=== PATIENT | male | born 1950 | race African-American/Black ===

== ENCOUNTER → 2019-03-29 | Day surgery (SDC) | payer MEDICARE, BC ==
[~2019-03-29] MED LIST: ASPIR 8181 MG PO; AZOR 10-40 MG1 EACH PO; BYSTOLIC10 MG PO; CLOPIDOGREL75 MG PO; FENTANYL CITRATE/PF 100MCG/2 ML INJ ONE; HUMALOG100 UNIT/3 SQ; LANTUS 3ML100 UNITS/ SQ; METFORMIN HCL1000 MG PO; MIDAZOLAM HCL 2 MG/2 ML VIAL ONE; OR PHACO EYE KIT ONE; PREOP PHACO EYE KIT ONE; TRIAMTERENE-HC1 EAC1 PO
--- OUTSIDE RECORDS SUMMARY | 2019-03-29 12:01 | XMS REPORT | Clinical Summary ---
Author Author [facility] Address Unknown Phone Unavailable Care Team Providers Care Pig Caster Name Role Phone Lester Rubalcava MD PCP Allergies Comments Active Allergy Reactions Severity Noted Date Tizafmc-Lmd-Irq Reductase 08/14/2016 Inhibitors Medications End Date Status Medication Sig Dispensed Refills Start Date Active UNABLE TO FIND Take 1 tablet 0 by mouth every morning. Amlodipine-ol mes-medoxom- 10/40mg Active metoprolol tartrate Take 50 mg by 0 (LOPRESSOR) 50 mg tablet mouth 2 (two) times a day. Active ezetimibe (ZETIA) 10 mg Take 10 mg by 0 tablet mouth nightly. Active atorvastatin (LIPITOR) 20 Take 20 mg by 0 MG tablet mouth nightly. Active aspirin (ECOTRIN) 81 MG Take 81 mg by 0 enteric coated tablet mouth daily. 03/31/2019 Active HYDROcodone-acetaminophen Earliest Fill 60 tablet 0 (XODOL 10-300) 10-300 mg Date: 9 per tablet 03/17/19. 1-2 tabs by mouth every 4-6 hours as needed for pain 03/22/2019 methylPREDNISolone Take 1 tablet 21 tablet 0 (MEDROL DOSEPAK) 4 mg (4 mg total) 9 tablet by mouth See Admin Instructions for 5 days. Use as directed by package instructions 03/22/2019 methylPREDNISolone Take 1 tablet 21 tablet 0 201 (MEDROL DOSEPAK) 4 mg (4 mg total) 9 tablet by mouth See Admin Instructions for 5 days. Use as directed by package instructions Active Problems Problem Noted Date Presence of artificial knee joint 12/18/2016 OA (osteoarthritis) of knee 10/28/2016 Primary osteoarthritis of both knees 08/14/2016 Encounters Care Team Description Date Type Specialty Ventura Crocker MD Primary osteoarthritis of both knees (Primary Dx); Acute pain of right knee; History of total left knee replacement; Acute bilateral low back pain, with sciatica presence unspecified; Acute right-sided low back pain with right-sided sciatica 03/17/2019 Office Visit Orthopedic Surgery Елена So Acute pain of right knee (Primary Dx) 03/17/2019 Orders Only Orthopedic Surgery after 03/28/2018 Immunizations Name Dates Previously Given Next Due Pneumococcal Conjugate 10/30/2016 13-Valent Family History Medical History Relation Name Comments Brain cancer Brother Cancer Brother Cancer Father Diabetes Father Lung cancer Father Alzheimer's disease Mother Cancer Sister Colon cancer Sister Relation Name Status Comments Brother Father Mother Alive Sister Social History Date Tobacco Use Types Packs/Day Years Used Current Some Day Smoker Cigars Comments: occasional Alcohol Use Drinks/Week oz/Week Comments Yes occasional Sex Assigned at Date Recorded Not on file Industry Job Start Date Occupation Not on file Not on file Not on file Travel End Travel History Travel Start No recent travel history available. Last Filed Vital Signs Not on file Plan of Treatment Health Maintenance Due Date Last Done Comments COLONOSCOPY SCREENING 2001 SHINGLES VACCINES (#1) 2001 65+ PNEUMOCOCCAL VACCINE 10/30/2017 10/30/2016 (2 of 2 - PPSV23) INFLUENZA VACCINE 04/28/2019 Implants Device Identifier Shelf Expiration Date Model / Serial / Lot Implanted Type Area Manufactur er 05/01/2021 [id number] / / [id number] E-Poly Vanguard Cr Tib Brng 79/83 X IPM Left: Knee BIOMET, 10 - [id number] [employer]PL[employer] Implanted: Qty: 1 on 10/28/2016 by Ventura Gutierrez MD 11/08/2025 [id number] / / [id number] Vanguard Cr Por Fem-Lt 75 - IPM Left: Knee BIOMET, [id number] [employer]PL[employer] Implanted: Qty: 1 on 10/28/2016 by Ventura Gutierrez MD 06/09/2026 [id number] / / [id number] Biomet Regenx Bernie Tib Tray 79mm - IPM Left: Knee BIOMET, [id number] [employer]PL[employer] Implanted: Qty: 1 on 10/28/2016 by Ventura Gutierrez MD 05/28/2020 [id number] / / [id number] Cement Bone R+G 1dose Palacos - Knee Joint Left: Knee [employer] [id number] Implants Implanted: Qty: 1 on 10/28/2016 by Ventura Crockre MD 10/13/2026 [id number] / / [id number] Stem Tib Prim Finned 40mm Ascent Knee Joint Left: Knee [employer] Maxim - [id number] Implants Implanted: Qty: 1 on 10/28/2016 by Ventura Crocker MD 06/15/2021 [id number] / / [id number] Implant Ptlr Vanguard 3 Peg Series Orthopedic Left: Knee [employer] A Thin 31x6.2mm - [id number] Trauma Implanted: Qty: 1 on 10/28/2016 by Implants Ventura Crocker MD Procedures Comments Procedure Name Priority Date/Time Associated Diagnosis MRI LUMBAR SPINE WO Routine 03/22/2019 Acute bilateral low back CONTRAST 4:40 PM CDT pain, with sciatica presence unspecified XR KNEE 4+ VW RIGHT Routine 03/17/2019 Acute pain of right knee 11:48 AM CDT XR PELVIS 1 OR 2 VW Routine 03/17/2019 Acute pain of right knee 11:42 AM CDT after 03/28/2018 Results * MRI Lumbar Spine Wo Contrast (03/22/2019 4:40 PM CDT) Specimen Narrative Performed At [facility] EXAMINATION:MRI LUMBAR SPINE WO CONTRAST CLINICAL HISTORY:M54.5 Low back pain, [id number] red flagsno prior management COMPARISON:None. TECHNIQUE: Multiplanar MRI imaging withoutIV Gadolinium was performed. FINDINGS: There is normal lumbar lordosis and alignment. Vertebral bodies are preserved. Bone marrow is unremarkable with no evidence of acute fracture or suspicious marrow-replacing lesion. Intervertebral disc spaces are relatively preserved. The distal spinal cord appears unremarkable. The conus medullaris terminates at the T12 level and appears unremarkable. The cauda equina is unremarkable. L1-2: Unremarkable L2-3: Unremarkable L3-4: Mild disc bulge with bilateral facet arthropathy. There is no canal stenosis or foraminal narrowing. L4-5: Mild disc bulge with central disc protrusion bilateral facet arthropathy. There is minimal canal stenosis with mild to moderate bilateral lateral recess narrowing. There is no significant foraminal narrowing. L5-S1: There is diffuse disc bulge with superimposed right central and subarticular disc protrusion resulting in significant right lateral recess narrowing and potential compromise of the traversing right S1 nerve root. There is no canal stenosis. There is no foraminal narrowing. Visualized paraspinal soft tissues are unremarkable. IMPRESSION: Right central and subarticular disc protrusion at L5-S1 level with right lateral recess narrowing and potential compromise of the right S1 nerve root. Clinical correlation is recommended. [id number] Procedure Note Hm Interface, Radiology Results - 03/22/2019 6:20 PM CDT EXAMINATION: MRI LUMBAR SPINE WO CONTRAST CLINICAL HISTORY: M54.5 Low back pain, Radiculopathy 6wks no red flags no prior management COMPARISON: None. TECHNIQUE: Multiplanar MRI imaging without IV Gadolinium was performed. FINDINGS: There is normal lumbar lordosis and alignment. Vertebral bodies are preserved. Bone marrow is unremarkable with no evidence of acute fracture or suspicious marrow-replacing lesion. Intervertebral disc spaces are relatively preserved. The distal spinal cord appears unremarkable. The conus medullaris terminates at the T12 level and appears unremarkable. The cauda equina is unremarkable. L1-2: Unremarkable L2-3: Unremarkable L3-4: Mild disc bulge with bilateral facet arthropathy. There is no canal stenosis or foraminal narrowing. L4-5: Mild disc bulge with central disc protrusion bilateral facet arthropathy. There is minimal canal stenosis with mild to moderate bilateral lateral recess narrowing. There is no significant foraminal narrowing. L5-S1: There is diffuse disc bulge with superimposed right central and subarticular disc protrusion resulting in significant right lateral recess narrowing and potential compromise of the traversing right S1 nerve root. There is no canal stenosis. There is no foraminal narrowing. Visualized paraspinal soft tissues are unremarkable. IMPRESSION: Right central and subarticular disc protrusion at L5-S1 level with right lateral recess narrowing and potential compromise of the right S1 nerve root. Clinical correlation is recommended. [id number] Performing Organization Address City/State/Zipcode Phone Number [facility] [address] [place] [address] * XR Knee 4+ Vw Right (03/17/2019 11:48 AM CDT) Specimen Narrative Performed At [facility] Well fixed and aligned TKR Left OA [id number]% loss of joint space, periarticular spurring, cysts, and subchondral sclerosisright knee medial Performing Organization Address City/[facility] Phone Number [facility] [address] [place] [address] * XR Pelvis 1 Or 2 Vw (03/17/2019 11:42 AM CDT) Specimen Narrative Performed At [facility] underpenetrated xray with No milena or soft tissue abnormality visible Performing Organization Address [facility] Phone Number [facility] [address] [place] [address] after 03/28/2018 Insurance Type Payer Benefit Subscriber ID Effective Phone Address Plan / Dates Group Medicare MEDICARE MEDICARE xxxxxxxxxxx 2016-P [employer], PART A AND resent [place] B PPO BCBS BCBS xxxxxxxxxxxx 2017-P CHOICE resent PPO/LEXI [place] PPO Advance Directives Patient has advance care planning documents on file. For more information, adriano miller contact: Dave Velez [address] [place] [address]
[2019-03-29 15:35] VITALS: BP 148/68
== END | disposition home or self-care (01) ==
LOC: OR 11:59
PROVIDERS: ATTEND Ophthalmology
DX: H25.12 Age-related nuclear cataract, left eye (principal); I10 Essential (primary) hypertension; E66.01 Morbid (severe) obesity due to excess calories; E78.2 Mixed hyperlipidemia; M54.18 Radiculopathy, sacral and sacrococcygeal region; M17.0 Bilateral primary osteoarthritis of knee; E11.9 Type 2 diabetes mellitus without complications; G47.33 Obstructive sleep apnea (adult) (pediatric); Z88.8 Allergy status to other drugs, medicaments and biological substances; Z79.82 Long term (current) use of aspirin; Z68.41 Body mass index [BMI] 40.0-44.9, adult; Z85.46 Personal history of malignant neoplasm of prostate; Z96.652 Presence of left artificial knee joint; Z87.891 Personal history of nicotine dependence
CPT/HCPCS: 66984; J2250; V2632; J3010

== ENCOUNTER → 2019-04-12 | Day surgery (SDC) | payer MEDICARE, BC ==
--- OUTSIDE RECORDS SUMMARY | 2019-04-12 11:17 | XMS REPORT | Clinical Summary ---
Author Author [facility] Address Unknown Phone Unavailable Care Team Providers Care Survival Specialist Name Role Phone Lester Rubalcava MD PCP Allergies Comments Active Allergy Reactions Severity Noted Date Zqcuxpc-Ujf-Zvf Reductase 08/14/2016 Inhibitors Medications End Date Status [...] by 0 enteric coated tablet mouth daily. 03/22/2019 methylPREDNISolone Take 1 tablet 21 tablet 0 (MEDROL DOSEPAK) 4 mg (4 mg total) 9 tablet by mouth See Admin Instructions for 5 days. Use as directed by package instructions 03/31/2019 HYDROcodone-acetaminophen Earliest Fill 60 tablet 0 (XODOL [...] Dx) 03/17/2019 Orders Only Orthopedic Surgery after 04/11/2018 Immunizations Name Dates Previously Given Next Due [...] Lot Implanted Type Area Manufactur er 05/01/2021 [id number] / / [id number] E-Poly Vanguard Cr Tib Brng 79/83 X IPM Left: Knee BIOMET, 10 - [id number] [employer] Implanted: Qty: 1 on 10/28/2016 by Ventura Gutierrez MD 11/08/2025 [id number] / / [id number] Vanguard Cr Por Fem-Lt 75 - IPM Left: Knee BIOMET, [id number] [employer] Implanted: Qty: 1 on 10/28/2016 by Ventura Gutierrez MD 06/09/2026 [id number] / / [id number] Biomet Regenx Bernie Tib Tray 79mm - IPM Left: Knee BIOMET, [id number] [employer] Implanted: Qty: 1 on 10/28/2016 by Ventura Gutierrez MD 05/28/2020 [id number] / / [id number] Cement Bone R+G 1dose Palacos - Knee Joint Left: Knee [employer] [id number] Implants Implanted: Qty: 1 on 10/28/2016 by Ventura Crocker MD 10/13/2026 [id number] / / [id number] Stem Tib Prim Finned 40mm Ascent Knee Joint Left: Knee [employer] Maxim - [id number] Implants Implanted: Qty: 1 on 10/28/2016 by Ventura Crocker MD 06/15/2021 [id number] / / [id number] Implant Ptlr Vanguard 3 Peg Series Orthopedic Left: Knee [employer] A Thin 31x6.2mm - [id number] Trauma Implanted: Qty: 1 on 10/28/2016 by [...] of right knee 11:42 AM CDT after 04/11/2018 Results * MRI Lumbar Spine Wo Contrast (03/22/2019 4:40 PM CDT) Specimen Narrative Performed At [facility] EXAMINATION:MRI LUMBAR SPINE WO CONTRAST CLINICAL HISTORY:M54.5 Low back pain, Quctacuhoziwo2mqotw red flagsno prior management COMPARISON:None. TECHNIQUE: Multiplanar [...] S1 nerve root. Clinical correlation is recommended. [id number] Procedure Note Hm Interface, Radiology Results - [...] S1 nerve root. Clinical correlation is recommended. [id number] Performing Organization Address City/State/Zipcode Phone Number [facility] [address] [place] [address] * XR Knee 4+ Vw Right (03/17/2019 11:48 AM CDT) Specimen Narrative Performed At [facility] Well fixed and aligned TKR Left OA rydd291% loss of joint space, periarticular spurring, cysts, and subchondral sclerosisright knee medial Performing Organization Address City/[facility] Phone Number [facility] [address] [place] [address] * XR Pelvis 1 Or 2 Vw (03/17/2019 11:42 AM CDT) Specimen Narrative Performed At [facility] underpenetrated xray with No milena or soft tissue abnormality visible Performing Organization Address [facility] Phone Number [facility] [address] [place] [address] after 04/11/2018 Insurance Type Payer Benefit Subscriber ID Effective Phone Address Plan / Dates Group Medicare MEDICARE MEDICARE xxxxxxxxxxx 2016-P [employer], PART [place] AND resent [place] B PPO BCBS BCBS xxxxxxxxxxxx 2017-P CHOICE resent PPO/LEXI [place] PPO Advance Directives Patient has advance care planning documents on file. For more information, adriano miller contact: Dave Velez [address] [place] [address]
[2019-04-12 13:30] VITALS: BP 150/82
== END | disposition home or self-care (01) ==
LOC: OR 09:49
PROVIDERS: ATTEND Ophthalmology
DX: H25.11 Age-related nuclear cataract, right eye (principal); G47.33 Obstructive sleep apnea (adult) (pediatric); I10 Essential (primary) hypertension; E66.01 Morbid (severe) obesity due to excess calories; E78.2 Mixed hyperlipidemia; M54.16 Radiculopathy, lumbar region; M17.0 Bilateral primary osteoarthritis of knee; Z88.8 Allergy status to other drugs, medicaments and biological substances; Z68.41 Body mass index [BMI] 40.0-44.9, adult; Z96.652 Presence of left artificial knee joint
CPT/HCPCS: 66984; J2250; J3010; V2632